=== PATIENT | male | born 1995 | race Caucasian/White ===

== ENCOUNTER 2017-01-06 19:43 | Emergency (ER) | payer BC, OTHER ==
[~2017-01-06] VITALS: Ht 172.7 cm; Wt 64.9 kg
[2017-01-06 19:51] VITALS: TEMP 37; Ht 172.7 cm; Wt 64.9 kg
--- NOTE | 2017-01-06 20:37 | DIAGNOSTIC IMAGING REPORT ---
RIGHT HAND MIN 3 VIEWS ROUTINE CLINICAL HISTORY: 21 years-old Male presenting with punched brick wall, hand pain. TECHNIQUE: Frontal, oblique, and lateral views of the right hand were obtained. COMPARISON: None. FINDINGS: [place] dorsal angulated fracture of the neck of the fifth metacarpal (boxer's fracture). No additional fracture noted. The fifth metacarpophalangeal joint is preserved. No dislocation of the carpometacarpal articulation. IMPRESSION: Mildly angulated fracture of the neck of the fifth metacarpal (boxer's fracture). Electronically signed by: Karthik Lopez M.D. 01/06/2017 8:36 PM Dictated Date/Time: 01/06/2017 8:34 PM
[2017-01-06] MEDS ORDERED: IBUPROFEN 600 MG TAB PO STA (20:46)
[2017-01-06] MEDS ORDERED: LISD50CA4 PO (20:48)
[2017-01-06] MEDS ORDERED: HYDR-5688 PO (20:51)
--- NOTE | 2017-01-06 20:53 | EMERGENCY ROOM VISIT NOTE ---
ED Visit Note First contact with patient: 20:02 CHIEF COMPLAINT: Right hand injury a few hours ago HISTORY OF PRESENT ILLNESS: Patient is a [id number] 21-year-old white male who presents to emergency department for evaluation of right hand pain after he punched a wall in anger a couple of hours ago. Notes pain primarily along the fifth metacarpal. He denies taking any medications, nor applying any ice to the area. He rates his discomfort a 8/10 presently. There was no audible cracking sound at the time of the injury. He denies any wrist pain. No other injuries are noted. REVIEW OF SYSTEMS: Review of systems as per HPI. All other systems reviewed were negative. At least 6 systems reviewed. PMH: Electronic medical records are reviewed and summarized as above/below. See Problem List. His tetanus is up-to-date. SOCIAL HISTORY: Patient is a college student from [place] who lives in a house locally with roommates. Nonsmoker, social EtOH. PHYSICAL EXAM: Vital Signs: Reviewed Nurse's notes. CONSTITUTIONAL: Patient is a well-appearing 21-year-old white male who is awake and alert and in no acute distress. MUSCULOSKELETAL: Examination of the right hand and note multiple superficial abrasions. He has swelling and tenderness over the distal fifth metacarpal. There is some tenderness along the fourth metacarpal as well. No pain over the wrist. He has discomfort with range of motion of the fingers. Sensation light touch is intact. Capillary refill less than 2 seconds. EMERGENCY DEPARTMENT COURSE: An x-ray of the hand revealed a fracture of the fifth metacarpal neck with slight angulation. Patient was given an ice pack and medicate with ibuprofen. He was given a [place] home pack. He was placed in an ulnar gutter Ortho-Glass splint. Differential diagnosis included fracture, sprain, contusion, dislocation, among others. Medication reconciliation: I attest that I have personally reviewed the patient' s current medication list. Blood pressure screening: Patient was found to have a slightly elevated blood pressure due to circumstances. I do not believe that the patient requires hypertension monitoring. Patient was reviewed in the [facility] Pres[facility] Drug Monitoring Program, and there were no red flags noted. He receives regular Vyvanse prescriptions from a provider in [place], no narcotic prescriptions. CLINICAL HISTORY: 21 years-old Male presenting with punched brick wall, hand pain. TECHNIQUE: Frontal, oblique, and lateral views of the right hand were obtained. COMPARISON: None. FINDINGS: [place] dorsal angulated fracture of the neck of the fifth metacarpal (boxer's fracture). No additional fracture noted. The fifth metacarpophalangeal joint is preserved. No dislocation of the carpometacarpal articulation. IMPRESSION: Mildly angulated fracture of the neck of the fifth metacarpal (boxer's fracture). Problem List Surgical Problems: (1) History of tonsillectomy Status: Resolved Current/Historical Medications Scheduled Lisdexamfetamine Dimesylate (Vyvanse), 50 MG PO DAILY Scheduled PRN Hydrocodone/Acetaminophen 5MG/325MG ([place] 5MG/325MG), 1-2 TABLETS PO Q4 PRN for Pain Allergies Coded Allergies: No Known Allergies (Unverified , 01/06/17) Vital Signs Date Time Temp Pulse Resp B/P (MAP) Pulse Ox O2 Delivery O2 Flow Rate FiO2 01/06/17 19:51 37.0 130 20 142/79 95 Room Air Departure Information Impression Primary Impression: Fracture of fifth metacarpal bone of right hand Prescriptions Hydrocodone/Acetaminophen 5MG/325MG ([place] 5MG/325MG) Tab 1-2 TABLETS PO Q4 Y for Pain, #20 TAB For Initial Treatment Prov: Norma tSeele PA 01/06/17 Referrals No Doctor, Assigned (PCP) Jerome Samson MD Patient Instructions [facility] Additional Instructions Hydrocodone/Acetaminophen ([place]) 5/325 mg: Take 1-2 pills every four hours for breakthrough pain. Avoid alcohol, operating machinery or dangerous equipment, working on ladders or roofs, DRIVING, or situations where being under the influence may be dangerous. It is recommended to use an pxxr-cuv-xinqjph stool softener such as Colace, 100mg twice daily while taking this medication to avoid constipation. Ibuprofen(Motrin, Advil) may be used for fever or pain. Use 600mg every six hours as needed. Take with food. Avoid using more than 2400mg in a 24 hour period. Do not use 2400mg per day for more than three consecutive days without physician direction. Prolonged inappropriate use can lead to stomach upset or ulcers. This medication can be taken if you need to drive, work, or perform activities which may be dangerous when taking narcotic pain medication. (AND/OR) Acetaminophen(Tylenol) may be used for fever or pain. Use 1000mg every six hours as needed. Avoid using more than 3000mg in a 24 hour period. This medication can be taken if you need to drive, work, or perform activities which may be dangerous when taking narcotic pain medication. Ice compresses for 20 minutes at a time four times daily for 2-3 days. Rest and elevate your injury. Do not get the splint wet. If your splint feels excessively tight, you have worsening pain, develop numbness or tingling, or your digits appear blue, loosen the tashi wrap. Then reapply the tashi wrap gently without removing the splint. If your symptoms are not quickly relieved return to the ER for re- evaluation. Continue current medications. Return to the ER immediately for any numbness, tingling, severe pain, extreme swelling in the extremity or as needed. Call [facility] on Sunday to arrange follow up for your injury. Problem Qualifiers Primary Impression: Fracture of fifth metacarpal bone of right hand Encounter type: initial encounter Fracture type: closed Metacarpal location : neck Fracture alignment: displaced Qualified Codes: S62.336A - Displaced fracture of neck of fifth metacarpal bone, right hand, initial encounter for closed fracture
[2017-01-06] MEDS ORDERED: NORCO 5/325MG HOME PACK PO ONE (21:00)
[2017-01-06 21:29] VITALS: BP 134/76; PULSE 80; O2SAT 99
== END 2017-01-06 21:32 | disposition home or self-care (01) ==
LOC: C.EDB 19:47 → C.EDD 21:32
DX: S62.336A Displaced fracture of neck of fifth metacarpal bone, right hand, initial encounter for closed fracture (principal); W22.8XXA Striking against or struck by other objects, initial encounter; Z79.899 Other long term (current) drug therapy; Z98.890 Other specified postprocedural states

== ENCOUNTER → 2017-01-16 | Outpatient (CLI) | payer BC ==
[~2017-01-16] MED LIST: HYDR-5688 PO; LISD50CA4 PO
--- NOTE | 2017-01-16 16:00 | DIAGNOSTIC IMAGING REPORT ---
RIGHT HAND 3 VIEWS CLINICAL HISTORY: Right hand injury. FINDINGS: 3 views the right hand are compared to study dated 01/06/2017. The skeletal structures are well mineralized. There is unchanged alignment of a boxer's fracture of the fifth metacarpal with overlying soft tissue edema. No new fracture is seen. The joint spaces of the hand are maintained. IMPRESSION: Unchanged alignment of a boxer's fracture of the fifth metacarpal as compared 01/06/2017. Electronically signed by: Henrry Bernal M.D. 01/16/2017 3:34 PM Dictated Date/Time: 01/16/2017 3:33 PM
== END | disposition home or self-care (01) ==
LOC: C.RDSM 16:00
PROVIDERS: ATTEND Physician Assistant
DX: S62.316A Displaced fracture of base of fifth metacarpal bone, right hand, initial encounter for closed fracture (principal); X58.XXXA Exposure to other specified factors, initial encounter

== ENCOUNTER → 2017-01-31 | Outpatient (CLI) | payer BC | END | disposition home or self-care (01) | LOC: C.RDSM 12:01 | PROVIDERS: ATTEND Orthopaedic Surgery Sports Medicine | DX: Z09 Encounter for follow-up examination after completed treatment for conditions other than malignant neoplasm (principal); S62.91XD Unspecified fracture of right hand, subsequent encounter for fracture with routine healing; X58.XXXD Exposure to other specified factors, subsequent encounter ==